=== PATIENT | male | born 1985 | race Caucasian/White ===

== ENCOUNTER 2023-11-14 19:17 | Inpatient (IN) ==
[2023-11-14 20:45] LABS: Basophils # (Auto) 0.02 K/mcL (0.00-0.30); Basophils % (Auto) 0.2 % (0.0-2.0); Eosinophils # (Auto) 0.54 K/mcL (0.00-0.70); Eosinophils % (Auto) 5.3 % (0.0-7.0); Hemoglobin 14.4 g/dL (13.7-17.5); Lymphocytes # (Auto) 2.62 K/mcL (1.50-4.80); Lymphocytes % (Auto) 25.9 % (15.5-49.0); Mean Corpuscular HGB Conc 32.7 g/dL (31.0-36.0); Mean Platelet Volume 10.2 fL (8.8-12.5); Monocytes % (Auto) 10.9 % (1.0-12.0); Neutrophils % (Auto) 57.5 % (38.0-78.0); Platelet Count 187 K/mcL (140-440); RBC 4.68 M/mcL (4.63-6.08); Red Cell Distribution Width 13.5 % (11.5-14.5); WBC 10.1 K/mcL (4.5-11.0)
[2023-11-14 21:03] LABS: ALT/SGPT 21 U/L (<40); AST/SGOT 26 U/L (<40); Albumin 3.8 gm/dL (3.2-5.2); Albumin/Globulin Ratio 1.1 (1.0-2.3); Alkaline Phosphatase 75 U/L (39-117); Bilirubin,Total 0.3 mg/dL (0.1-1.0); Blood Urea Nitrogen 22 mg/dL (6-20); Calcium 9.2 mg/dL (8.6-10.4); Carbon Dioxide 27 mmol/L (22-30); Chloride 100 mmol/L (96-108); Globulin 3.5 gm/dL (2.2-3.7); Glomerular Filtration Rate 59; Glucose 119 mg/dL (70-105)
[2023-11-14] MEDS: cefTRIAXone 2 GM in DEXTROSE 5% IN WATER 50 ML IV ONE (22:24)
[2023-11-14] MEDS: VANCOMYCIN 1,000 MG in 0.9 % SODIUM CHLORIDE 250 ML IV ONE (22:56)
[2023-11-15] MEDS: 0.9 % SODIUM CHLORIDE 1,000 ML IV ONE (00:29)
[2023-11-15] MEDS ORDERED: ONDANSETRON 4 MG/2 ML VIAL IV PRN ×2 (01:04→08:10)
[2023-11-15] MEDS: 0.9 % SODIUM CHLORIDE 1,000 ML IV SCH (02:30)
[2023-11-15] MEDS ORDERED: POLYETHYLENE GLYCOL 3350 17 GM PACKET PO PRN (08:10)
[2023-11-15] MEDS ORDERED: SENNOSIDES 1 TABLET PO PRN (08:10)
[2023-11-15] MEDS ORDERED: IPRATROPIUM/ALBUTEROL 3 ML AMPUL.NEB NEB PRN (08:10)
[2023-11-15] MEDS ORDERED: morphine 4 MG/ML VIAL IV PRN (08:10)
[2023-11-15] MEDS ORDERED: POTASSIUM CHLORIDE 40 MEQ in DEXTROSE 5% IN WATER 500 ML IV PRN (08:10)
[2023-11-15] MEDS ORDERED: POTASSIUM CHLORIDE 20 MEQ TABLET PO PRN ×2 (08:10)
[2023-11-15] MEDS ORDERED: HYDROcodone/APAP 5/325MG TABLET PO PRN (08:10)
[2023-11-15] MEDS ORDERED: DEXTROSE 31 GM ORAL.SUSP PO PRN (08:10)
[2023-11-15] MEDS ORDERED: DEXTROSE 50% 50 ML VIAL IV PRN (08:10)
[2023-11-15] MEDS ORDERED: MAGNESIUM SULFATE 2 GM/50 ML BAG IV PRN (08:10)
[2023-11-15] MEDS ORDERED: VANCOMYCIN PER PHARMACY IV SCH (08:15)
[2023-11-15 08:29] LABS: Erythrocyte Sedimentation Rate 71 mm/hr (0-15)
[2023-11-15 09:05] LABS: Band Neutrophils % 5 % (0-10); Eosinophils % (Manual) 6 % (0-7); Lymphocytes % 18 % (15-49); Monocytes % (Manual) 11 % (1-12); Platelet Estimate NORMAL (Normal); RBC Morphology NORMAL (Normal); Reactive Lymphocytes 3 % (0-2); Segmented Neutrophils % 57 % (38-78)
[2023-11-15] MEDS: METOPROLOL SUCCINATE 50 MG TAB.XL.24H PO SCH (10:03)
[2023-11-15] MEDS: CLINDAMYCIN IN 0.9 % SOD CHLOR 600 MG/50 ML BAG IV SCH (10:03)
[2023-11-15] MEDS: DOCUSATE SODIUM 100 MG CAPSULE PO SCH (10:03)
[2023-11-15] MEDS: ENOXAPARIN 60 MG/0.6 ML SYRINGE SQ SCH (10:41)
[2023-11-15] MEDS: LINEZOLID 600 MG/300 ML BAG IV SCH (10:41)
[2023-11-15] MEDS: INSULIN LISPRO 1 UNIT/0.01 ML UNIT SQ SCH (11:37)
[2023-11-15] MEDS: cefTRIAXone 1 GM VIAL IV SCH (13:24)
[2023-11-15] MEDS: 0.9 % SODIUM CHLORIDE 10 ML SYRINGE IV SCH (13:25)
[2023-11-15] MEDS: ENOXAPARIN 40 MG/0.4 ML SYRINGE SQ SCH (15:10)
[2023-11-16 06:14] LABS: Basophils # (Auto) 0.03 K/mcL (0.00-0.30); Basophils % (Auto) 0.4 % (0.0-2.0); Eosinophils # (Auto) 0.72 K/mcL (0.00-0.70); Eosinophils % (Auto) 9.1 % (0.0-7.0); Hematocrit 43.2 % (40.1-51.0); Hemoglobin 13.9 g/dL (13.7-17.5); Lymphocytes # (Auto) 2.36 K/mcL (1.50-4.80); Lymphocytes % (Auto) 29.9 % (15.5-49.0); Mean Cell Volume 95.6 fL (80.0-100.0); Mean Corpuscular HGB Conc 32.2 g/dL (31.0-36.0); Mean Platelet Volume 10.4 fL (8.8-12.5); Monocytes % (Auto) 8.9 % (1.0-12.0); Neutrophils % (Auto) 51.3 % (38.0-78.0); Platelet Count 202 K/mcL (140-440); RBC 4.52 M/mcL (4.63-6.08); Red Cell Distribution Width 13.6 % (11.5-14.5); WBC 7.9 K/mcL (4.5-11.0)
[2023-11-16 06:47] LABS: ALT/SGPT 19 U/L (<40); AST/SGOT 24 U/L (<40); Albumin 3.6 gm/dL (3.2-5.2); Albumin/Globulin Ratio 1.1 (1.0-2.3); Alkaline Phosphatase 61 U/L (39-117); Bilirubin,Direct < 0.2 mg/dL (0-0.3); Bilirubin,Total 0.3 mg/dL (0.1-1.0); Blood Urea Nitrogen 14 mg/dL (6-20); Carbon Dioxide 24 mmol/L (22-30); Chloride 103 mmol/L (96-108); Globulin 3.2 gm/dL (2.2-3.7); Glomerular Filtration Rate 121; Glucose 99 mg/dL (70-105); Lactate Dehydrogenase 169 U/L (135-225); Phosphorous 3.5 mg/dL (2.5-4.5); Triglycerides 153 mg/dL (<150); Uric Acid 7.2 mg/dL (2.5-8.0)
[2023-11-16] MEDS: MUPIROCIN OINT 2% 22GM NARES SCH (09:08)
[2023-11-16] MEDS: cefTRIAXone 2 GM in DEXTROSE 5% IN WATER 50 ML IV SCH (11:04)
[2023-11-16] MEDS: cefTRIAXone 1 GM VIAL IV SCH (11:19)
[2023-11-16] MEDS: CALCIUM CARBONATE 500 MG TAB.CHEW CHEWED PRN (12:01)
[2023-11-16] MEDS: BISMUTH SUBSALICYLATE 15 ML ORAL.SUSP PO PRN (16:46)
== END 2023-11-17 13:00 | disposition home or self-care (01) | DRG 603 ==
LOC: ED 19:17 → MEDSUR 11-15 01:48
PROVIDERS: ADMIT Internal Medicine; ATTEND Internal Medicine

== ENCOUNTER 2024-11-01 15:58 | Inpatient (IN) ==
[2024-11-01] MEDS: ACETAMINOPHEN 325 MG TABLET PO ONE ×2 (16:18→20:26)
[2024-11-01] MEDS: 0.9 % SODIUM CHLORIDE 2,535 ML IV ONE (16:18)
[2024-11-01 16:27] LABS: Basophils # (Auto) 0.02 K/mcL (0.00-0.30); Basophils % (Auto) 0.1 % (0.0-2.0); Eosinophils % (Auto) 1.6 % (0.0-7.0); Hematocrit 51.2 % (40.1-51.0); Hemoglobin 16.5 g/dL (13.7-17.5); Lymphocytes # (Auto) 2.31 K/mcL (1.50-4.80); Lymphocytes % (Auto) 9.2 % (15.5-49.0); Mean Corpuscular HGB Conc 32.2 g/dL (31.0-36.0); Mean Platelet Volume 10.6 fL (8.8-12.5); Monocytes # (Auto) 1.57 K/mcL (0.10-0.90); Monocytes % (Auto) 6.3 % (1.0-12.0); Neutrophils % (Auto) 82.5 % (38.0-78.0); Platelet Count 230 K/mcL (140-440); RBC 5.39 M/mcL (4.63-6.08); Red Cell Distribution Width 13.6 % (11.5-14.5)
[2024-11-01 16:47] LABS: INR 0.9 (0.9-1.1); Prothrombin Time 12.7 sec (11.9-14.5)
[2024-11-01 16:53] LABS: ALT/SGPT 35 U/L (<40); AST/SGOT 31 U/L (<40); Albumin 4.3 gm/dL (3.2-5.2); Albumin/Globulin Ratio 1.2 (1.0-2.3); Alkaline Phosphatase 100 U/L (39-117); Bilirubin,Total 0.4 mg/dL (0.1-1.0); Blood Urea Nitrogen 12 mg/dL (6-20); Calcium 9.8 mg/dL (8.6-10.4); Carbon Dioxide 28 mmol/L (22-30); Chloride 99 mmol/L (96-108); Globulin 3.6 gm/dL (2.2-3.7); Glomerular Filtration Rate 120; Glucose 103 mg/dL (70-105); Potassium 4.2 mmol/L (3.3-5.1); Sodium 138 mmol/L (133-145); proBNP < 36.0 pg/mL (<125.0)
[2024-11-01] MEDS: cefTRIAXone 2 GM in DEXTROSE 5% IN WATER 50 ML IV ONE (17:17)
[2024-11-01] MEDS: VANCOMYCIN 2,000 MG in 0.9 % SODIUM CHLORIDE 500 ML IV ONE (17:47)
[2024-11-01] MEDS: IBUPROFEN 600 MG TABLET PO ONE (18:29)
[2024-11-01 20:09] LABS: Appearance,Urine Clear (Clear); Bilirubin,Urine Negative (Negative); Color,Urine Yellow; Glucose,Urine (UA) Negative (Negative); Ketones,Urine Negative (Negative); Leukocyte Esterase,Urine Negative /uL (Negative); Nitrate,Urine Negative (Negative); Protein,Urine Negative (Negative); Urine Blood Negative ery/mcL (Negative); Urine RBC 0 /hpf (0-3); Urine Squamous Epithelial Cell 0 /hpf (0-4); Urine WBC 0 /hpf (0-4); Urobilinogen,Urine Normal
[2024-11-01] MEDS: 0.9 % SODIUM CHLORIDE 1,000 ML IV SCH (20:45)
[2024-11-01] MEDS ORDERED: morphine 4 MG/ML VIAL IV PRN (20:50)
[2024-11-01] MEDS ORDERED: ONDANSETRON 4 MG/2 ML VIAL IV PRN (20:50)
[2024-11-01] MEDS ORDERED: ACETAMINOPHEN 325 MG TABLET PO PRN (20:50)
[2024-11-01] MEDS ORDERED: traZODone HCL 50 MG TABLET PO PRN (20:50)
[2024-11-01] MEDS ORDERED: oxyCODONE IR 5 MG TABLET PO PRN (20:50)
[2024-11-01] MEDS ORDERED: IPRATROPIUM/ALBUTEROL 3 ML AMPUL.NEB NEB PRN (20:50)
[2024-11-01] MEDS: cefTRIAXone 2 GM in DEXTROSE 5% IN WATER 50 ML IV SCH (21:04)
[2024-11-01] MEDS: SENNOSIDES 1 TABLET PO SCH (21:05)
[2024-11-01] MEDS: DOCUSATE SODIUM 100 MG CAPSULE PO SCH (21:05)
[2024-11-01] MEDS: 0.9 % SODIUM CHLORIDE 10 ML SYRINGE IV SCH (21:06)
[2024-11-01] MEDS: VANCOMYCIN PER PHARMACY IV ONE (21:07)
[2024-11-02] MEDS: LINEZOLID 600 MG/300 ML BAG IV SCH (04:34)
[2024-11-02 06:27] LABS: Blood Urea Nitrogen 9 mg/dL (6-20); Calcium 8.9 mg/dL (8.6-10.4); Carbon Dioxide 25 mmol/L (22-30); Chloride 101 mmol/L (96-108); Glomerular Filtration Rate 120; Glucose 151 mg/dL (70-105); Potassium 3.6 mmol/L (3.3-5.1); Sodium 137 mmol/L (133-145)
[2024-11-02 06:28] LABS: Basophils # (Auto) 0.03 K/mcL (0.00-0.30); Basophils % (Auto) 0.2 % (0.0-2.0); Eosinophils # (Auto) 0.15 K/mcL (0.00-0.70); Eosinophils % (Auto) 0.9 % (0.0-7.0); Hematocrit 45.6 % (40.1-51.0); Hemoglobin 14.7 g/dL (13.7-17.5); Mean Cell Volume 95.8 fL (80.0-100.0); Mean Corpuscular HGB Conc 32.2 g/dL (31.0-36.0); Mean Platelet Volume 10.6 fL (8.8-12.5); Monocytes # (Auto) 0.92 K/mcL (0.10-0.90); Monocytes % (Auto) 5.8 % (1.0-12.0); Neutrophils % (Auto) 82.8 % (38.0-78.0); Platelet Count 176 K/mcL (140-440); RBC 4.76 M/mcL (4.63-6.08); Red Cell Distribution Width 13.8 % (11.5-14.5); WBC 15.9 K/mcL (4.5-11.0)
[2024-11-02 07:39] VITALS: TEMP 98.5; O2SAT 100
[2024-11-02] MEDS: ENOXAPARIN 40 MG/0.4 ML SYRINGE SQ SCH (09:01)
== END 2024-11-02 10:50 | disposition left against medical advice (07) | DRG 602 ==
LOC: ED 15:58 → MEDSUR 20:45
PROVIDERS: ADMIT Internal Medicine; ATTEND Internal Medicine